=== PATIENT | female | born 1960 | race Caucasian/White ===

== ENCOUNTER 2017-02-08 13:59 | Emergency (ER) | payer MEDICAID ==
[~2017-02-08] VITALS: Ht 160 cm; Wt 36.3 kg
[2017-02-08 15:15] VITALS: BP 122/80
[2017-02-08] MEDS ORDERED: KETOROLAC TROMETH 60MG/2ML VIAL IM ONE (15:30)
== END 2017-02-08 15:53 | disposition home or self-care (01) ==
LOC: ER 13:59
DX: N20.1 Calculus of ureter (principal); J45.909 Unspecified asthma, uncomplicated; F17.210 Nicotine dependence, cigarettes, uncomplicated; Z88.0 Allergy status to penicillin; Z88.2 Allergy status to sulfonamides; Z88.8 Allergy status to other drugs, medicaments and biological substances
CPT/HCPCS: 74176; 93005; 96372; 99284; J1885